=== PATIENT | male | born 1970 | race Caucasian/White ===

== ENCOUNTER 2017-08-15 04:22 | Inpatient (IN) ==
[2017-08-15] MEDS ORDERED: HYDROmorphone 2 MG/1 ML VIAL IV STA (04:28)
[2017-08-15] MEDS ORDERED: ONDANSETRON 4 MG/2 ML VIAL IV STA (04:28)
[2017-08-15] MEDS ORDERED: HYDROmorphone 2 MG/1 ML VIAL ONE ×2 (04:37→07:34)
[2017-08-15] MEDS ORDERED: ONDANSETRON 4 MG/2 ML VIAL ONE ×2 (04:37→07:33)
[2017-08-15 04:50] LABS: Basophils # 0.1 10*3/uL (0.0-0.2); Basophils % 0.4 % (0.0-0.8); Eosinophils % 0.2 % (0.00-10.9); Hemoglobin 14.4 GM/DL (14.0-18.0); Immature Granulocytes % 0.7 %; Immature Granulocytes Absolute 0.12 #; Lymphocytes # 2.1 10*3/uL (1.4-4.0); Lymphocytes % 12.4 % (21.2-54.2); Mean Corpuscular HGB Conc 35.1 GM/DL (32-36); Mean Corpuscular Hemoglobin 30 PG (27-34); Mean Corpuscular Volume 86.5 FL (87-102); Mean Platelet Volume 9.6 FL (9.6-12.0); Monocytes # 1.1 10*3/uL (0.11-0.8); Monocytes % 6.6 % (1.7-12.7); Neutrophils # 13.6 10*3/uL (1.4-7.4); Neutrophils % 79.7 % (38.7-73.9); Platelet Count 237 T/CUMM (130-400); Red Blood Count 4.74 MC/CUMM (3.8-5.5); Red Cell Distribution Width 12.7 % (9.3-17.3)
[2017-08-15] MEDS ORDERED: cefTRIAXone 2,000 MG in SODIUM CHLORIDE 0.9% 100 ML IV ONE (05:01)
[2017-08-15] MEDS ORDERED: SODIUM CHLORIDE 0.9% 1,000 ML IV STA (05:07)
[2017-08-15 05:19] LABS: Alanine Aminotransferase 57 U/L (16-61); Albumin 3.6 G/DL (3.4-5.0); Alkaline Phosphatase 76 U/L (45-117); Aspartate Amino Transferase 48 U/L (0-37); Blood Urea Nitrogen 10 MG/DL (7-18); CKMB % 1.4 %; Calcium 8.6 MG/DL (8.5-10.1); Glucose 187 MG/DL (74-106); Osmolality,Calculated 263.8 MOS/KG (273-304); Potassium 5.4 MMOL/L (3.5-5.1); Sodium 130 MMOL/L (136-145); Total Protein 7.2 G/DL (6.4-8.3); Troponin I Only < 0.015 NG/ML (0.00-0.045)
[2017-08-15] MEDS ORDERED: cefTRIAXone 1,000 MG VIAL ONE (05:24)
[2017-08-15 05:52] LABS: PT Patient Result 10.7 SECS
[2017-08-15] MEDS ORDERED: ALUMINUM/MAGNES/SIMETH MAX STR 30 ML UDCUP PO PRN (06:13)
[2017-08-15] MEDS ORDERED: ACETAMINOPHEN 325 MG TABLET PO PRN (06:13)
[2017-08-15] MEDS ORDERED: DEXTROSE 50% 25 GM/50 ML VIAL IV PRN (06:24)
[2017-08-15] MEDS ORDERED: GLUCAGON 1 MG VIAL IM PRN (06:24)
[2017-08-15] MEDS ORDERED: SODIUM CHLORIDE 0.9% 1,000 ML IV SCH (06:30)
[2017-08-15 06:32] LABS: Apearance,Urine Slightly Hazy (Clear); Bacteria,Urine Occasional /HPF (Few); Bilirubin,Urine Negative (Negative); Blood, Urine Small mg/dL (Negative); Glucose,Urine (UA) Negative (Negative); Hyaline Casts,Urine 9 /LPF (0-3); Ketones,Urine Negative (Negative); Mucus,Urine Occasional /LPF (Occasional); Nitrite,Urine Negative (Negative); Protein,Urine 30 MG/DL; RBC,Urine <1 /HPF (0-4); Urine Color Yellow (Yellow); Urine Specific Gravity 1.035 (1.001-1.035); Urine Urobilinogen < 2.0 EU/DL (0.2-1.0); WBC,Urine 2 /HPF (0-6)
[2017-08-15 06:41] LABS: Barbiturates Screen,Urine Negative (Negative); Benzodiazepines Screen,Urine Positive (Negative); Cannabinoid Screen,Urine Negative (Negative); Opiate Screen,Urine Positive (Negative); Phencyclidine Screen,Urine Negative (Negative)
[2017-08-15 06:49] LABS: ABG Base Excess -6.6 MMOL/L (-2.5-2.5); ABG HCO3 18.9 MMOL/L (20-26); ABG Oxygen Saturation 89.2 % (95-100); ABG PCO2 61.3 MM HG (35-48); ABG PO2 71.5 MM HG (80-95); ABG TCO2 20.9 MMOL/L (23-27); Allen Test Positive
[2017-08-15 06:51] LABS: ABG PH 7.187 (7.35-7.45)
[2017-08-15] MEDS ORDERED: ATROPINE 0.4 MG/1 ML VIAL ONE (07:17)
[2017-08-15] MEDS: ONDANSETRON 4 MG/2 ML VIAL IV PRN ×3 (07:36→15:23)
[2017-08-15] MEDS: HYDROmorphone 2 MG/1 ML VIAL IV PRN ×3 (07:38→15:24)
[2017-08-15] MEDS: KETOROLAC 15 MG/1 ML VIAL IV SCH ×3 (08:33→21:05)
[2017-08-15] MEDS: INSULIN REGULAR 100 UNIT/ML SUBCUT SCH ×4 (08:35→21:10)
[2017-08-15 09:58] LABS: Allen Test Positive
[2017-08-15 10:04] LABS: ABG Base Excess -7.7 MMOL/L (-2.5-2.5); ABG HCO3 18.1 MMOL/L (20-26); ABG Oxygen Saturation 88.9 % (95-100); ABG PCO2 57.7 MM HG (35-48); ABG PO2 69.2 MM HG (80-95); ABG TCO2 19.6 MMOL/L (23-27)
[2017-08-15] MEDS ORDERED: ALBUTEROL/IPRATROPIUM 3 ML NEB RESP TX PRN (10:07)
[2017-08-15 10:13] LABS: ABG PH 7.187 (7.35-7.45)
[2017-08-15 10:32] LABS: Free T4 (Free Thyroxine) 0.87 NG/DL (0.76-1.46); Thyroid Stimulating Hormone 1.22 uIU/ml (0.358-3.74)
[2017-08-15] MEDS: DOCUSATE SODIUM 100 MG CAPSULE PO SCH ×2 (10:45→21:09)
[2017-08-15] MEDS: PANTOPRAZOLE 40 MG TABLET PO SCH (10:45)
[2017-08-15] MEDS: SODIUM BICARB IV SCH ×2 (11:11→21:04)
[2017-08-15] MEDS: NACL 0.45% IV SCH ×2 (11:11→21:04)
[2017-08-15] MEDS: DEXTROSE 5% IV SCH ×2 (11:11→21:04)
[2017-08-15 11:18] LABS: Basophils % 0.2 % (0.0-0.8); Hematocrit 39.9 VOL% (42.0-52.0); Hemoglobin 13.9 GM/DL (14.0-18.0); Immature Granulocytes % 0.8 %; Immature Granulocytes Absolute 0.12 #; Lymphocytes # 0.8 10*3/uL (1.4-4.0); Lymphocytes % 5.5 % (21.2-54.2); Mean Corpuscular HGB Conc 34.8 GM/DL (32-36); Mean Corpuscular Hemoglobin 30 PG (27-34); Mean Corpuscular Volume 87.1 FL (87-102); Monocytes # 1.4 10*3/uL (0.11-0.8); Monocytes % 9.7 % (1.7-12.7); Neutrophils # 12.4 10*3/uL (1.4-7.4); Neutrophils % 83.8 % (38.7-73.9); Platelet Count 195 T/CUMM (130-400); Red Blood Count 4.58 MC/CUMM (3.8-5.5); Red Cell Distribution Width 12.9 % (9.3-17.3); White Blood Count 14.8 T/CUMM (4-12)
[2017-08-15 11:23] LABS: Apearance,Urine CLEAR (Clear); Bilirubin,Urine Negative (Negative); Blood, Urine Small mg/dL (Negative); Glucose,Urine (UA) Negative (Negative); Ketones,Urine Negative (Negative); Mucus,Urine Occasional /LPF (Occasional); Nitrite,Urine Negative (Negative); Protein,Urine Negative; Urine Color Straw (Yellow); Urine Specific Gravity 1.006 (1.001-1.035); Urine Urobilinogen < 2.0 EU/DL (0.2-1.0); WBC,Urine <1 /HPF (0-6)
[2017-08-15] MEDS ORDERED: HydrOXYzine PAMOATE 50 MG CAPSULE PO PRN (11:43)
[2017-08-15] MEDS ORDERED: DEXAMETHASONE 4 MG/1 ML VIAL MISC INJ ONE (12:00)
[2017-08-15] MEDS ORDERED: BUPIVACAINE 0.5% 10 ML VIAL NERVEBLOCK ONE (12:00)
[2017-08-15] MEDS ORDERED: DEXAMETHASONE 10 MG/1 ML VIAL MISC INJ ONE (12:00)
[2017-08-15] MEDS: ALBUTEROL/IPRATROPIUM 3 ML NEB RESP TX SCH ×2 (12:04→20:25)
[2017-08-15 12:08] LABS: Allen Test Positive
[2017-08-15 12:29] LABS: ABG Base Excess -3.3 MMOL/L (-2.5-2.5); ABG HCO3 21.5 MMOL/L (20-26); ABG Oxygen Saturation 90.5 % (95-100); ABG PH 7.233 (7.35-7.45); ABG PO2 69.1 MM HG (80-95)
[2017-08-15] MEDS: VENLAFAXINE XR 75 MG CAPSULE PO SCH (13:56)
[2017-08-15] MEDS: METOPROLOL TARTRATE 50 MG TABLET PO SCH (21:09)
[2017-08-16] MEDS: HYDROmorphone 2 MG/1 ML VIAL IV PRN ×3 (00:23→23:15)
[2017-08-16] MEDS: ONDANSETRON 4 MG/2 ML VIAL IV PRN ×2 (00:26→18:22)
[2017-08-16] MEDS: ALBUTEROL/IPRATROPIUM 3 ML NEB RESP TX SCH ×4 (00:46→19:39)
[2017-08-16] MEDS: KETOROLAC 15 MG/1 ML VIAL IV SCH ×4 (02:47→23:15)
[2017-08-16 03:44] LABS: ABG Base Excess 2.9 MMOL/L (-2.5-2.5); ABG HCO3 26.8 MMOL/L (20-26); ABG Oxygen Saturation 89.6 % (95-100); ABG PCO2 53.4 MM HG (35-48); ABG PO2 59.6 MM HG (80-95); ABG TCO2 26.8 MMOL/L (23-27); Allen Test Positive
[2017-08-16 05:00] LABS: Basophils % 0.1 % (0.0-0.8); Hematocrit 30.4 VOL% (42.0-52.0); Hemoglobin 10.5 GM/DL (14.0-18.0); Immature Granulocytes % 0.8 %; Lymphocytes # 0.8 10*3/uL (1.4-4.0); Lymphocytes % 6.6 % (21.2-54.2); Mean Corpuscular HGB Conc 34.5 GM/DL (32-36); Mean Corpuscular Hemoglobin 30 PG (27-34); Mean Corpuscular Volume 87.1 FL (87-102); Mean Platelet Volume 10.2 FL (9.6-12.0); Monocytes # 1.2 10*3/uL (0.11-0.8); Monocytes % 9.7 % (1.7-12.7); Neutrophils # 10.5 10*3/uL (1.4-7.4); Neutrophils % 82.8 % (38.7-73.9); Platelet Count 172 T/CUMM (130-400); Red Blood Count 3.49 MC/CUMM (3.8-5.5); Red Cell Distribution Width 12.6 % (9.3-17.3); White Blood Count 12.7 T/CUMM (4-12)
[2017-08-16 05:27] LABS: Calcium 7.7 MG/DL (8.5-10.1); Osmolality,Calculated 266.8 MOS/KG (273-304); Potassium 4.7 MMOL/L (3.5-5.1)
[2017-08-16 05:33] LABS: Albumin 3.1 G/DL (3.4-5.0); Bilirubin,Total 0.6 MG/DL (0.2-1.0); Osmolality,Calculated 270.5 MOS/KG (273-304); Potassium 4.7 MMOL/L (3.5-5.1); Risk Ratio 2.92; Total Protein 6.1 G/DL (6.4-8.3); VLDL CHOLESTEROL 39.2 MG/DL
[2017-08-16] MEDS: NACL 0.45% IV SCH (08:39)
[2017-08-16] MEDS: SODIUM BICARB IV SCH (08:39)
[2017-08-16] MEDS: DEXTROSE 5% IV SCH (08:39)
[2017-08-16] MEDS: INSULIN REGULAR 100 UNIT/ML SUBCUT SCH ×4 (08:41→23:15)
[2017-08-16] MEDS: ROSUVASTATIN 10 MG TABLET PO SCH (08:43)
[2017-08-16] MEDS: VENLAFAXINE XR 75 MG CAPSULE PO SCH (08:43)
[2017-08-16] MEDS: DOCUSATE SODIUM 100 MG CAPSULE PO SCH ×2 (08:43→23:15)
[2017-08-16] MEDS: PANTOPRAZOLE 40 MG TABLET PO SCH (08:43)
[2017-08-16 09:15] LABS: Hematocrit 28.2 VOL% (42.0-52.0); Hemoglobin 9.8 GM/DL (14.0-18.0)
[2017-08-16] MEDS ORDERED: SODIUM CHLORIDE 0.9% 250 ML IV PRN (09:49)
[2017-08-16] MEDS: LISINOPRIL 20 MG TABLET PO SCH (10:27)
[2017-08-16] MEDS: METOPROLOL TARTRATE 50 MG TABLET PO SCH (10:27)
[2017-08-16] MEDS: LACTATED RINGERS 1,000 ML IV SCH (11:06)
[2017-08-16 17:34] LABS: Hematocrit 30.3 VOL% (42.0-52.0); Hemoglobin 10.6 GM/DL (14.0-18.0)
[2017-08-17] MEDS: METOPROLOL TARTRATE 50 MG TABLET PO SCH ×3 (00:05→22:24)
[2017-08-17] MEDS: ALBUTEROL/IPRATROPIUM 3 ML NEB RESP TX SCH ×4 (01:00→19:15)
[2017-08-17] MEDS: LACTATED RINGERS 1,000 ML IV SCH (02:06)
[2017-08-17 03:43] LABS: ABG Base Excess 6.3 MMOL/L (-2.5-2.5); ABG HCO3 29.9 MMOL/L (20-26); ABG Oxygen Saturation 85.9 % (95-100); ABG PCO2 56.8 MM HG (35-48); ABG PH 7.372 (7.35-7.45); ABG PO2 53.3 MM HG (80-95); ABG TCO2 30.2 MMOL/L (23-27); Allen Test Positive
[2017-08-17] MEDS: KETOROLAC 15 MG/1 ML VIAL IV SCH ×4 (03:54→21:57)
[2017-08-17] MEDS: HYDROmorphone 2 MG/1 ML VIAL IV PRN (03:55)
[2017-08-17 06:24] LABS: Calcium 8.1 MG/DL (8.5-10.1); Magnesium 2.3 MG/DL (1.8-2.4); Osmolality,Calculated 275.8 MOS/KG (273-304); Potassium 4.3 MMOL/L (3.5-5.1)
[2017-08-17 07:34] LABS: Basophils % 0.2 % (0.0-0.8); Eosinophils % 0.1 % (0.00-10.9); Hematocrit 28.9 VOL% (42.0-52.0); Hemoglobin 9.9 GM/DL (14.0-18.0); Immature Granulocytes % 0.9 %; Lymphocytes # 1.5 10*3/uL (1.4-4.0); Lymphocytes % 12.8 % (21.2-54.2); Mean Corpuscular HGB Conc 34.3 GM/DL (32-36); Mean Corpuscular Hemoglobin 30 PG (27-34); Mean Corpuscular Volume 87.8 FL (87-102); Mean Platelet Volume 9.7 FL (9.6-12.0); Monocytes # 1.2 10*3/uL (0.11-0.8); Monocytes % 10.8 % (1.7-12.7); NRBC # 0.02 10*3/uL; Neutrophils # 8.6 10*3/uL (1.4-7.4); Neutrophils % 75.2 % (38.7-73.9); Platelet Count 134 T/CUMM (130-400); Red Blood Count 3.29 MC/CUMM (3.8-5.5); Red Cell Distribution Width 14.1 % (9.3-17.3); White Blood Count 11.4 T/CUMM (4-12)
[2017-08-17] MEDS: VENLAFAXINE XR 75 MG CAPSULE PO SCH (08:52)
[2017-08-17] MEDS: DOCUSATE SODIUM 100 MG CAPSULE PO SCH ×2 (08:52→21:57)
[2017-08-17] MEDS: LISINOPRIL 20 MG TABLET PO SCH (08:52)
[2017-08-17] MEDS: INSULIN REGULAR 100 UNIT/ML SUBCUT SCH ×4 (08:52→21:58)
[2017-08-17] MEDS ORDERED: SODIUM CHLORIDE 0.9% 250 ML IV PRN (08:53)
[2017-08-17] MEDS: PANTOPRAZOLE 40 MG TABLET PO SCH (08:53)
[2017-08-17] MEDS: ROSUVASTATIN 10 MG TABLET PO SCH (08:53)
[2017-08-17 11:00] LABS: ABG Base Excess 8.1 MMOL/L (-2.5-2.5); ABG HCO3 31.9 MMOL/L (20-26); ABG Oxygen Saturation 95.2 % (95-100); ABG PH 7.421 (7.35-7.45); ABG PO2 73.9 MM HG (80-95); ABG TCO2 31.3 MMOL/L (23-27); Allen Test Positive; Pt O2 Delivery Device Venturi Mask
[2017-08-17] MEDS ORDERED: FUROSEMIDE 40 MG/4 ML VIAL IV ONE (11:04)
[2017-08-17] MEDS: cloNIDine 0.1 MG TABLET PO SCH ×2 (12:04→22:24)
[2017-08-17] MEDS ORDERED: SODIUM CHLORIDE 0.9% 500 ML IV ONE (14:04)
[2017-08-17] MEDS: SODIUM CHLORIDE 0.9% 1,000 ML IV SCH (15:04)
[2017-08-17 17:53] LABS: Hemoglobin 9.7 GM/DL (14.0-18.0)
[2017-08-17] MEDS: LORazepam 2 MG/1 ML VIAL IV PRN ×2 (19:08→21:58)
[2017-08-17 19:49] LABS: ABG Base Excess 8.3 MMOL/L (-2.5-2.5); ABG HCO3 33.1 MMOL/L (20-26); ABG Oxygen Saturation 87.9 % (95-100); ABG PH 7.465 (7.35-7.45); ABG PO2 47.2 MM HG (80-95); ABG TCO2 34.5 MMOL/L (23-27); Allen Test Positive; Pt O2 Delivery Device Venturi Mask
[2017-08-18] MEDS: ALBUTEROL/IPRATROPIUM 3 ML NEB RESP TX SCH ×4 (00:26→19:30)
[2017-08-18] MEDS ORDERED: HALOPERIDOL 5 MG/ML AMP IV PRN (00:52)
[2017-08-18] MEDS: HYDROmorphone 2 MG/1 ML VIAL IV PRN (01:19)
[2017-08-18] MEDS ORDERED: THIAMINE 200 MG/2 ML VIAL IV ONE (01:34)
[2017-08-18] MEDS: ONDANSETRON 4 MG/2 ML VIAL IV PRN (01:56)
[2017-08-18] MEDS: LORazepam 2 MG/1 ML VIAL IV PRN ×2 (02:38→04:42)
[2017-08-18] MEDS: KETOROLAC 15 MG/1 ML VIAL IV SCH ×4 (03:05→20:46)
[2017-08-18 03:21] LABS: ABG Base Excess 4.9 MMOL/L (-2.5-2.5); ABG HCO3 28.7 MMOL/L (20-26); ABG Oxygen Saturation 88.7 % (95-100); ABG PCO2 58.2 MM HG (35-48); ABG PH 7.349 (7.35-7.45); ABG PO2 60.9 MM HG (80-95); ABG TCO2 29.2 MMOL/L (23-27); Allen Test Positive
[2017-08-18] MEDS: SODIUM CHLORIDE 0.9% 1,000 ML IV SCH ×3 (04:06→20:19)
[2017-08-18 05:11] LABS: Red Blood Count 3.37 MC/CUMM (3.8-5.5); White Blood Count 10.3 T/CUMM (4-12)
[2017-08-18 05:12] LABS: Basophils % 0.2 % (0.0-0.8); Eosinophils % 0.3 % (0.00-10.9); Hematocrit 30.1 VOL% (42.0-52.0); Hemoglobin 10.1 GM/DL (14.0-18.0); Immature Granulocytes % 0.7 %; Immature Granulocytes Absolute 0.07 #; Lymphocytes # 1.5 10*3/uL (1.4-4.0); Lymphocytes % 14.4 % (21.2-54.2); Mean Corpuscular HGB Conc 33.6 GM/DL (32-36); Mean Corpuscular Hemoglobin 30 PG (27-34); Mean Corpuscular Volume 89.3 FL (87-102); Mean Platelet Volume 10.1 FL (9.6-12.0); Monocytes # 1.2 10*3/uL (0.11-0.8); Monocytes % 12.1 % (1.7-12.7); NRBC # 0.02 10*3/uL; Neutrophils # 7.4 10*3/uL (1.4-7.4); Neutrophils % 72.3 % (38.7-73.9); Platelet Count 147 T/CUMM (130-400); Red Cell Distribution Width 14.1 % (9.3-17.3)
[2017-08-18 05:43] LABS: Calcium 8.1 MG/DL (8.5-10.1); Magnesium 2.4 MG/DL (1.8-2.4); Osmolality,Calculated 279.7 MOS/KG (273-304); Potassium 3.7 MMOL/L (3.5-5.1)
[2017-08-18 05:50] LABS: Troponin I Only < 0.015 NG/ML (0.00-0.045)
[2017-08-18] MEDS: INSULIN REGULAR 100 UNIT/ML SUBCUT SCH ×4 (09:30→20:22)
[2017-08-18] MEDS: THIAMINE 200 MG/2 ML VIAL IV SCH (09:52)
[2017-08-18] MEDS: LISINOPRIL 20 MG TABLET PO SCH (09:52)
[2017-08-18] MEDS: cloNIDine 0.1 MG TABLET PO SCH ×2 (09:53→20:46)
[2017-08-18] MEDS: METOPROLOL TARTRATE 50 MG TABLET PO SCH ×2 (09:53→20:46)
[2017-08-18] MEDS: PANTOPRAZOLE 40 MG TABLET PO SCH (09:53)
[2017-08-18] MEDS: DOCUSATE SODIUM 100 MG CAPSULE PO SCH ×2 (09:53→20:46)
[2017-08-18] MEDS: ROSUVASTATIN 10 MG TABLET PO SCH (09:53)
[2017-08-18] MEDS: VENLAFAXINE XR 75 MG CAPSULE PO SCH (11:11)
[2017-08-18] MEDS: DEXMEDETOMIDINE 200 MCG in SODIUM CHLORIDE 0.9% 48 ML IV SCH (20:19)
[2017-08-19] MEDS: ALBUTEROL/IPRATROPIUM 3 ML NEB RESP TX SCH ×4 (00:38→20:13)
[2017-08-19] MEDS: HYDROmorphone 2 MG/1 ML VIAL IV PRN (01:37)
[2017-08-19] MEDS: LORazepam 2 MG/1 ML VIAL IV PRN (02:43)
[2017-08-19] MEDS: KETOROLAC 15 MG/1 ML VIAL IV SCH ×4 (02:45→20:43)
[2017-08-19 03:44] LABS: Allen Test Positive; Pt O2 Delivery Device Venturi Mask
[2017-08-19 04:02] LABS: ABG Base Excess 0.3 MMOL/L (-2.5-2.5); ABG HCO3 24.6 MMOL/L (20-26); ABG Oxygen Saturation 90.2 % (95-100); ABG PH 7.235 (7.35-7.45); ABG PO2 72.4 MM HG (80-95); ABG TCO2 27.4 MMOL/L (23-27)
[2017-08-19 05:31] LABS: ABG Base Excess 1.1 MMOL/L (-2.5-2.5); ABG HCO3 25.1 MMOL/L (20-26); ABG Oxygen Saturation 80.2 % (95-100); ABG PCO2 64.8 MM HG (35-48); ABG PH 7.268 (7.35-7.45); ABG PO2 52.7 MM HG (80-95); ABG TCO2 27.3 MMOL/L (23-27); Allen Test Positive
[2017-08-19] MEDS: SODIUM CHLORIDE 0.9% 1,000 ML IV SCH ×2 (06:56→20:42)
[2017-08-19 07:38] LABS: ABG Base Excess 2.1 MMOL/L (-2.5-2.5); ABG HCO3 26.2 MMOL/L (20-26); ABG Oxygen Saturation 88.4 % (95-100); ABG PCO2 58.9 MM HG (35-48); ABG PH 7.309 (7.35-7.45); ABG PO2 61.2 MM HG (80-95); ABG TCO2 27.2 MMOL/L (23-27); Allen Test Positive; Pt O2 Delivery Device Venturi Mask
[2017-08-19] MEDS ORDERED: DIAZEPAM 5 MG TABLET PO PRN (09:14)
[2017-08-19] MEDS: INSULIN REGULAR 100 UNIT/ML SUBCUT SCH ×4 (09:51→20:26)
[2017-08-19] MEDS: THIAMINE 200 MG/2 ML VIAL IV SCH (09:51)
[2017-08-19] MEDS: cloNIDine 0.1 MG TABLET PO SCH ×2 (10:44→20:44)
[2017-08-19] MEDS: PANTOPRAZOLE 40 MG TABLET PO SCH (10:48)
[2017-08-19] MEDS: DOCUSATE SODIUM 100 MG CAPSULE PO SCH ×2 (10:48→20:43)
[2017-08-19] MEDS: METOPROLOL TARTRATE 50 MG TABLET PO SCH ×2 (10:48→20:44)
[2017-08-19] MEDS: LISINOPRIL 20 MG TABLET PO SCH (10:48)
[2017-08-19] MEDS: VENLAFAXINE XR 75 MG CAPSULE PO SCH (10:53)
[2017-08-19] MEDS: ROSUVASTATIN 10 MG TABLET PO SCH (10:54)
[2017-08-19 11:36] LABS: Basophils % 0.2 % (0.0-0.8); Eosinophils # 0.1 10*3/uL (0.0-0.87); Eosinophils % 0.6 % (0.00-10.9); Hematocrit 30.8 VOL% (42.0-52.0); Hemoglobin 10.2 GM/DL (14.0-18.0); Immature Granulocytes % 0.8 %; Immature Granulocytes Absolute 0.08 #; Lymphocytes # 1.4 10*3/uL (1.4-4.0); Lymphocytes % 13.3 % (21.2-54.2); Mean Corpuscular HGB Conc 33.1 GM/DL (32-36); Mean Corpuscular Hemoglobin 30 PG (27-34); Mean Corpuscular Volume 91.1 FL (87-102); Mean Platelet Volume 9.4 FL (9.6-12.0); Monocytes # 1.4 10*3/uL (0.11-0.8); Monocytes % 13.3 % (1.7-12.7); NRBC # 0.02 10*3/uL; Neutrophils # 7.3 10*3/uL (1.4-7.4); Neutrophils % 71.8 % (38.7-73.9); Platelet Count 152 T/CUMM (130-400); Red Blood Count 3.38 MC/CUMM (3.8-5.5); Red Cell Distribution Width 14.2 % (9.3-17.3); White Blood Count 10.1 T/CUMM (4-12)
[2017-08-19] MEDS: DEXMEDETOMIDINE 200 MCG in SODIUM CHLORIDE 0.9% 48 ML IV SCH (13:07)
[2017-08-19] MEDS: QUEtiapine 100 MG TABLET PO SCH (20:43)
[2017-08-20] MEDS: ALBUTEROL/IPRATROPIUM 3 ML NEB RESP TX SCH ×4 (01:26→19:34)
[2017-08-20] MEDS: KETOROLAC 15 MG/1 ML VIAL IV SCH (02:32)
[2017-08-20] MEDS: LORazepam 2 MG/1 ML VIAL IV PRN ×4 (02:33→20:01)
[2017-08-20 04:45] LABS: Basophils % 0.4 % (0.0-0.8); Eosinophils # 0.2 10*3/uL (0.0-0.87); Eosinophils % 1.9 % (0.00-10.9); Hematocrit 29.5 VOL% (42.0-52.0); Hemoglobin 9.9 GM/DL (14.0-18.0); Immature Granulocytes % 0.8 %; Immature Granulocytes Absolute 0.07 #; Lymphocytes # 1.3 10*3/uL (1.4-4.0); Lymphocytes % 16.2 % (21.2-54.2); Mean Corpuscular HGB Conc 33.6 GM/DL (32-36); Mean Corpuscular Hemoglobin 30 PG (27-34); Mean Corpuscular Volume 90.5 FL (87-102); Mean Platelet Volume 9.5 FL (9.6-12.0); Monocytes % 12.2 % (1.7-12.7); Neutrophils # 5.7 10*3/uL (1.4-7.4); Neutrophils % 68.5 % (38.7-73.9); Platelet Count 152 T/CUMM (130-400); Red Blood Count 3.26 MC/CUMM (3.8-5.5); Red Cell Distribution Width 14.1 % (9.3-17.3); White Blood Count 8.3 T/CUMM (4-12)
[2017-08-20 04:52] LABS: INR 1.1; PT Patient Result 11.1 SECS; Partial Thromboplastin Time 30.2 SECS (0-40)
[2017-08-20 05:16] LABS: Albumin 2.6 G/DL (3.4-5.0); Calcium 7.8 MG/DL (8.5-10.1); Osmolality,Calculated 279.5 MOS/KG (273-304); Potassium 3.8 MMOL/L (3.5-5.1); Total Protein 5.7 G/DL (6.4-8.3)
[2017-08-20 05:19] LABS: Calcium 8.1 MG/DL (8.5-10.1); Magnesium 2.8 MG/DL (1.8-2.4); Potassium 3.8 MMOL/L (3.5-5.1)
[2017-08-20] MEDS: INSULIN REGULAR 100 UNIT/ML SUBCUT SCH ×4 (08:31→21:16)
[2017-08-20] MEDS: DOCUSATE SODIUM 100 MG CAPSULE PO SCH ×2 (09:09→20:03)
[2017-08-20] MEDS: cloNIDine 0.1 MG TABLET PO SCH ×2 (09:09→20:02)
[2017-08-20] MEDS: METOPROLOL TARTRATE 50 MG TABLET PO SCH ×3 (09:10→20:03)
[2017-08-20] MEDS: VENLAFAXINE XR 75 MG CAPSULE PO SCH (09:10)
[2017-08-20] MEDS: ROSUVASTATIN 10 MG TABLET PO SCH (09:10)
[2017-08-20] MEDS: chlordiazePOXIDE 10 MG CAPSULE PO PRN ×3 (09:11→17:51)
[2017-08-20] MEDS: PANTOPRAZOLE 40 MG TABLET PO SCH (09:11)
[2017-08-20] MEDS: LISINOPRIL 20 MG TABLET PO SCH (09:11)
[2017-08-20] MEDS: THIAMINE 200 MG/2 ML VIAL IV SCH (09:48)
[2017-08-20] MEDS: DEXMEDETOMIDINE 200 MCG in SODIUM CHLORIDE 0.9% 48 ML IV SCH (12:42)
[2017-08-20] MEDS: SODIUM CHLORIDE 0.9% 1,000 ML IV SCH (16:51)
[2017-08-20] MEDS: QUEtiapine 100 MG TABLET PO SCH (20:04)
[2017-08-20 21:25] LABS: ABG Base Excess -0.4 MMOL/L (-2.5-2.5); ABG Oxygen Saturation 88.5 % (95-100); ABG PH 7.216 (7.35-7.45); ABG PO2 68.8 MM HG (80-95); ABG TCO2 27.2 MMOL/L (23-27)
[2017-08-20 21:33] LABS: ABG PCO2 72.5 MM HG (35-48)
[2017-08-20 23:23] LABS: ABG Base Excess 1.2 MMOL/L (-2.5-2.5); ABG HCO3 25.3 MMOL/L (20-26); ABG Oxygen Saturation 89.3 % (95-100); ABG PCO2 55.9 MM HG (35-48); ABG PH 7.314 (7.35-7.45); ABG PO2 62.2 MM HG (80-95); ABG TCO2 25.9 MMOL/L (23-27)
[2017-08-21] MEDS: ALBUTEROL/IPRATROPIUM 3 ML NEB RESP TX SCH ×4 (00:26→20:12)
[2017-08-21 05:53] LABS: Basophils % 0.2 % (0.0-0.8); Eosinophils % 0.4 % (0.00-10.9); Hematocrit 30.7 VOL% (42.0-52.0); Immature Granulocytes % 0.9 %; Immature Granulocytes Absolute 0.09 #; Lymphocytes # 1.2 10*3/uL (1.4-4.0); Lymphocytes % 12.2 % (21.2-54.2); Mean Corpuscular HGB Conc 32.6 GM/DL (32-36); Mean Corpuscular Hemoglobin 30 PG (27-34); Mean Corpuscular Volume 90.6 FL (87-102); Mean Platelet Volume 9.8 FL (9.6-12.0); Monocytes # 1.1 10*3/uL (0.11-0.8); Monocytes % 11.9 % (1.7-12.7); Neutrophils # 7.1 10*3/uL (1.4-7.4); Neutrophils % 74.4 % (38.7-73.9); Platelet Count 180 T/CUMM (130-400); Red Blood Count 3.39 MC/CUMM (3.8-5.5); Red Cell Distribution Width 13.9 % (9.3-17.3); White Blood Count 9.6 T/CUMM (4-12)
[2017-08-21 06:31] LABS: Albumin 2.6 G/DL (3.4-5.0); Bilirubin,Total 1.4 MG/DL (0.2-1.0); Calcium 7.9 MG/DL (8.5-10.1); Osmolality,Calculated 281.4 MOS/KG (273-304); Potassium 4.5 MMOL/L (3.5-5.1)
[2017-08-21] MEDS: SODIUM CHLORIDE 0.9% 1,000 ML IV SCH ×3 (08:28→21:30)
[2017-08-21] MEDS: INSULIN REGULAR 100 UNIT/ML SUBCUT SCH ×4 (08:37→21:31)
[2017-08-21] MEDS: VENLAFAXINE XR 75 MG CAPSULE PO SCH (09:40)
[2017-08-21] MEDS: ROSUVASTATIN 10 MG TABLET PO SCH (09:40)
[2017-08-21] MEDS: METOPROLOL TARTRATE 50 MG TABLET PO SCH ×2 (09:40→21:29)
[2017-08-21] MEDS: DOCUSATE SODIUM 100 MG CAPSULE PO SCH ×2 (09:41→21:30)
[2017-08-21] MEDS: LISINOPRIL 20 MG TABLET PO SCH (09:41)
[2017-08-21] MEDS: ASPIRIN EC 81 MG TABLET PO SCH (09:41)
[2017-08-21] MEDS: THIAMINE 200 MG/2 ML VIAL IV SCH (09:41)
[2017-08-21] MEDS: PANTOPRAZOLE 40 MG TABLET PO SCH (09:41)
[2017-08-21 10:25] LABS: ABG Base Excess 3.6 MMOL/L (-2.5-2.5); ABG HCO3 27.5 MMOL/L (20-26); ABG Oxygen Saturation 92.1 % (95-100); ABG PCO2 50.8 MM HG (35-48); ABG PH 7.375 (7.35-7.45); ABG PO2 68.1 MM HG (80-95)
[2017-08-21] MEDS: cloNIDine 0.1 MG TABLET PO SCH (10:44)
[2017-08-21] MEDS: DEXMEDETOMIDINE 200 MCG in SODIUM CHLORIDE 0.9% 48 ML IV SCH (12:42)
[2017-08-21] MEDS: QUEtiapine 100 MG TABLET PO SCH (21:30)
[2017-08-22] MEDS: ALBUTEROL/IPRATROPIUM 3 ML NEB RESP TX SCH ×4 (01:47→19:39)
[2017-08-22 04:36] LABS: Basophils % 0.5 % (0.0-0.8); Eosinophils # 0.2 10*3/uL (0.0-0.87); Eosinophils % 2.2 % (0.00-10.9); Hemoglobin 9.7 GM/DL (14.0-18.0); Immature Granulocytes % 0.9 %; Immature Granulocytes Absolute 0.07 #; Lymphocytes # 1.8 10*3/uL (1.4-4.0); Lymphocytes % 22.3 % (21.2-54.2); Mean Corpuscular HGB Conc 33.4 GM/DL (32-36); Mean Corpuscular Hemoglobin 30 PG (27-34); Mean Corpuscular Volume 89.8 FL (87-102); Mean Platelet Volume 9.7 FL (9.6-12.0); Monocytes # 0.9 10*3/uL (0.11-0.8); NRBC # 0.02 10*3/uL; Neutrophils # 4.9 10*3/uL (1.4-7.4); Neutrophils % 62.1 % (38.7-73.9); Platelet Count 188 T/CUMM (130-400); Red Blood Count 3.23 MC/CUMM (3.8-5.5); Red Cell Distribution Width 13.8 % (9.3-17.3); White Blood Count 7.8 T/CUMM (4-12)
[2017-08-22 05:11] LABS: Albumin 2.3 G/DL (3.4-5.0); Bilirubin,Total 0.9 MG/DL (0.2-1.0); Calcium 7.8 MG/DL (8.5-10.1); Osmolality,Calculated 280.4 MOS/KG (273-304); Potassium 3.8 MMOL/L (3.5-5.1); Total Protein 5.6 G/DL (6.4-8.3)
[2017-08-22 05:23] LABS: ABG Base Excess 3.2 MMOL/L (-2.5-2.5); ABG HCO3 27.2 MMOL/L (20-26); ABG Oxygen Saturation 91.7 % (95-100); ABG PCO2 41.5 MM HG (35-48); ABG PH 7.433 (7.35-7.45); ABG PO2 62.3 MM HG (80-95); ABG TCO2 25.2 MMOL/L (23-27); Allen Test Positive; Pt O2 Delivery Device CPAP
[2017-08-22 05:45] LABS: Platelet Estimate Normal
[2017-08-22] MEDS: SODIUM CHLORIDE 0.9% 1,000 ML IV SCH ×4 (06:31→23:19)
[2017-08-22] MEDS ORDERED: TALC INTRAPLEURAL POWDER 5 GM BOTTLE INTRAPLEUR ONE (07:38)
[2017-08-22] MEDS ORDERED: BUPIVACAINE LIPOSOMAL 20 ML/266 MG VIAL ONE (08:04)
[2017-08-22] MEDS: THIAMINE 200 MG/2 ML VIAL IV SCH (08:22)
[2017-08-22] MEDS ORDERED: THROMBIN TOPICAL (RECOMBINANT) 5,000 UNIT VIAL TOP ONE (08:53)
[2017-08-22] MEDS: INSULIN REGULAR 100 UNIT/ML SUBCUT SCH ×4 (09:31→20:29)
[2017-08-22] MEDS ORDERED: CEFUROXIME 1,500 MG VIAL ONE (10:23)
[2017-08-22] MEDS: ROSUVASTATIN 10 MG TABLET PO SCH ×2 (11:43→20:32)
[2017-08-22] MEDS ORDERED: ALBUTEROL 2.5 MG/3 ML NEB RESP TX ONE ×2 (12:15→12:33)
[2017-08-22] MEDS ORDERED: PROPOFOL 200 MG/20 ML VIAL IV ONE (12:27)
[2017-08-22] MEDS ORDERED: DEXAMETHASONE 10 MG/1 ML VIAL ONE (12:28)
[2017-08-22] MEDS ORDERED: fentaNYL 100 MCG/2 ML VIAL ONE (12:28)
[2017-08-22] MEDS ORDERED: GLYCOPYRROLATE 0.4 MG/2 ML VIAL ONE (12:28)
[2017-08-22] MEDS ORDERED: ONDANSETRON 4 MG/2 ML VIAL ONE (12:28)
[2017-08-22] MEDS ORDERED: SEVOFLURANE 1 UNIT/15 MINUTE INH ONE (12:28)
[2017-08-22] MEDS ORDERED: MIDAZOLAM 2 MG/2 ML VIAL ONE (12:28)
[2017-08-22] MEDS ORDERED: ROCURONIUM 100 MG/10 ML VIAL IV ONE (12:29)
[2017-08-22] MEDS ORDERED: SUCCINYLCHOLINE 200 MG/10 ML VIAL ONE (12:29)
[2017-08-22] MEDS ORDERED: NEOSTIGMINE 10 MG/10 ML VIAL ONE (12:29)
[2017-08-22] MEDS: DEXMEDETOMIDINE 200 MCG in SODIUM CHLORIDE 0.9% 48 ML IV SCH (12:33)
[2017-08-22] MEDS ORDERED: SUFentanil 50 MCG/ML AMP ONE (12:34)
[2017-08-22] MEDS ORDERED: ePHEDrine 50 MG/ML AMP ONE (12:35)
[2017-08-22] MEDS: HYDROmorphone 2 MG/1 ML VIAL IV PRN ×2 (13:14→20:58)
[2017-08-22] MEDS: METOPROLOL TARTRATE 50 MG TABLET PO SCH ×2 (14:21→20:31)
[2017-08-22] MEDS: DOCUSATE SODIUM 100 MG CAPSULE PO SCH ×2 (14:23→20:31)
[2017-08-22] MEDS: PANTOPRAZOLE 40 MG TABLET PO SCH (14:48)
[2017-08-22] MEDS: VENLAFAXINE XR 75 MG CAPSULE PO SCH (14:48)
[2017-08-22] MEDS: ASPIRIN EC 81 MG TABLET PO SCH (14:48)
[2017-08-22] MEDS: QUEtiapine 100 MG TABLET PO SCH (20:32)
[2017-08-23] MEDS: ALBUTEROL/IPRATROPIUM 3 ML NEB RESP TX SCH ×4 (01:29→19:20)
[2017-08-23 03:41] LABS: Basophils % 0.3 % (0.0-0.8); Eosinophils % 0.1 % (0.00-10.9); Hematocrit 31.5 VOL% (42.0-52.0); Hemoglobin 10.7 GM/DL (14.0-18.0); Immature Granulocytes % 1.5 %; Immature Granulocytes Absolute 0.17 #; Lymphocytes # 1.6 10*3/uL (1.4-4.0); Lymphocytes % 13.9 % (21.2-54.2); Mean Corpuscular Hemoglobin 31 PG (27-34); Mean Platelet Volume 9.6 FL (9.6-12.0); Monocytes # 1.5 10*3/uL (0.11-0.8); Monocytes % 13.2 % (1.7-12.7); NRBC # 0.03 10*3/uL; Neutrophils # 8.3 10*3/uL (1.4-7.4); Platelet Count 218 T/CUMM (130-400); White Blood Count 11.6 T/CUMM (4-12)
[2017-08-23 03:50] LABS: Calcium 7.4 MG/DL (8.5-10.1); Magnesium 2.3 MG/DL (1.8-2.4); Osmolality,Calculated 279.5 MOS/KG (273-304); Potassium 4.2 MMOL/L (3.5-5.1)
[2017-08-23 03:57] LABS: ABG Base Excess 4.6 MMOL/L (-2.5-2.5); ABG HCO3 29.1 MMOL/L (20-26); ABG PCO2 42.8 MM HG (35-48); ABG PO2 86.8 MM HG (80-95); ABG TCO2 30.4 MMOL/L (23-27); Allen Test Positive; Pt O2 Delivery Device BIPAP
[2017-08-23 04:20] LABS: Band Neutrophils 3 % (0-10); Giant Platelets Few; Lymphocytes 14 % (20-55); Platelet Estimate Normal; Segmented Neutrophils 71 % (50-85); Total Cells Counted 100
[2017-08-23 04:21] LABS: Hypochromasia 2+; Polychromasia Few
[2017-08-23] MEDS: SODIUM CHLORIDE 0.9% 1,000 ML IV SCH ×2 (06:25→14:01)
[2017-08-23] MEDS: INSULIN REGULAR 100 UNIT/ML SUBCUT SCH ×4 (07:30→20:34)
[2017-08-23] MEDS: THIAMINE 200 MG/2 ML VIAL IV SCH (09:45)
[2017-08-23] MEDS: DOCUSATE SODIUM 100 MG CAPSULE PO SCH ×2 (09:50→20:33)
[2017-08-23] MEDS: VENLAFAXINE XR 75 MG CAPSULE PO SCH (09:50)
[2017-08-23] MEDS: PANTOPRAZOLE 40 MG TABLET PO SCH (09:50)
[2017-08-23] MEDS: ASPIRIN EC 81 MG TABLET PO SCH (09:50)
[2017-08-23] MEDS: METOPROLOL TARTRATE 50 MG TABLET PO SCH ×2 (09:51→20:33)
[2017-08-23] MEDS: DEXMEDETOMIDINE 200 MCG in SODIUM CHLORIDE 0.9% 48 ML IV SCH (13:42)
[2017-08-23] MEDS: ROSUVASTATIN 10 MG TABLET PO SCH (20:33)
[2017-08-23] MEDS: QUEtiapine 100 MG TABLET PO SCH (20:33)
[2017-08-23] MEDS: HYDROmorphone 2 MG/1 ML VIAL IV PRN (21:16)
[2017-08-24] MEDS: ALBUTEROL/IPRATROPIUM 3 ML NEB RESP TX SCH ×4 (00:37→19:25)
[2017-08-24] MEDS: SODIUM CHLORIDE 0.9% 1,000 ML IV SCH ×2 (02:12→09:56)
[2017-08-24 03:27] LABS: ABG Base Excess 3.7 MMOL/L (-2.5-2.5); ABG HCO3 27.6 MMOL/L (20-26); ABG Oxygen Saturation 94.6 % (95-100); ABG PCO2 48.2 MM HG (35-48); ABG PH 7.392 (7.35-7.45); ABG PO2 73.6 MM HG (80-95); ABG TCO2 26.7 MMOL/L (23-27); Allen Test Positive; Pt O2 Delivery Device CPAP
[2017-08-24 03:45] LABS: Basophils % 0.3 % (0.0-0.8); Eosinophils # 0.2 10*3/uL (0.0-0.87); Eosinophils % 1.5 % (0.00-10.9); Hematocrit 28.7 VOL% (42.0-52.0); Hemoglobin 9.4 GM/DL (14.0-18.0); Immature Granulocytes % 1.6 %; Immature Granulocytes Absolute 0.17 #; Lymphocytes # 1.7 10*3/uL (1.4-4.0); Lymphocytes % 16.1 % (21.2-54.2); Mean Corpuscular HGB Conc 32.8 GM/DL (32-36); Mean Corpuscular Hemoglobin 30 PG (27-34); Mean Corpuscular Volume 90.8 FL (87-102); Mean Platelet Volume 9.8 FL (9.6-12.0); Monocytes # 1.3 10*3/uL (0.11-0.8); NRBC # 0.02 10*3/uL; Neutrophils # 7.3 10*3/uL (1.4-7.4); Neutrophils % 68.5 % (38.7-73.9); Platelet Count 203 T/CUMM (130-400); Red Blood Count 3.16 MC/CUMM (3.8-5.5); White Blood Count 10.6 T/CUMM (4-12)
[2017-08-24 04:17] LABS: Calcium 7.2 MG/DL (8.5-10.1); Magnesium 2.2 MG/DL (1.8-2.4); Osmolality,Calculated 275.7 MOS/KG (273-304); Potassium 3.8 MMOL/L (3.5-5.1)
[2017-08-24] MEDS: HYDROmorphone 2 MG/1 ML VIAL IV PRN ×2 (06:33→22:14)
[2017-08-24] MEDS: INSULIN REGULAR 100 UNIT/ML SUBCUT SCH ×4 (07:28→22:06)
[2017-08-24] MEDS: METOPROLOL TARTRATE 50 MG TABLET PO SCH ×2 (09:54→22:07)
[2017-08-24] MEDS: VENLAFAXINE XR 75 MG CAPSULE PO SCH (09:56)
[2017-08-24] MEDS: PANTOPRAZOLE 40 MG TABLET PO SCH (09:56)
[2017-08-24] MEDS: ASPIRIN EC 81 MG TABLET PO SCH (09:56)
[2017-08-24] MEDS: DOCUSATE SODIUM 100 MG CAPSULE PO SCH ×2 (09:56→22:06)
[2017-08-24] MEDS: THIAMINE 200 MG/2 ML VIAL IV SCH (09:57)
[2017-08-24] MEDS: DEXMEDETOMIDINE 200 MCG in SODIUM CHLORIDE 0.9% 48 ML IV SCH (11:24)
[2017-08-24] MEDS: ROSUVASTATIN 10 MG TABLET PO SCH (22:06)
[2017-08-24] MEDS: QUEtiapine 100 MG TABLET PO SCH (22:08)
[2017-08-25] MEDS: ALBUTEROL/IPRATROPIUM 3 ML NEB RESP TX SCH ×5 (00:57→19:38)
[2017-08-25] MEDS: SODIUM CHLORIDE 0.9% 1,000 ML IV SCH ×2 (01:12→17:52)
[2017-08-25 03:10] LABS: Basophils % 0.3 % (0.0-0.8); Eosinophils # 0.1 10*3/uL (0.0-0.87); Eosinophils % 1.3 % (0.00-10.9); Hematocrit 29.8 VOL% (42.0-52.0); Hemoglobin 9.9 GM/DL (14.0-18.0); Immature Granulocytes % 1.2 %; Immature Granulocytes Absolute 0.12 #; Lymphocytes # 1.6 10*3/uL (1.4-4.0); Lymphocytes % 15.9 % (21.2-54.2); Mean Corpuscular HGB Conc 33.2 GM/DL (32-36); Mean Corpuscular Hemoglobin 30 PG (27-34); Mean Platelet Volume 9.8 FL (9.6-12.0); Monocytes % 9.4 % (1.7-12.7); Neutrophils # 7.4 10*3/uL (1.4-7.4); Neutrophils % 71.9 % (38.7-73.9); Platelet Count 241 T/CUMM (130-400); Red Blood Count 3.31 MC/CUMM (3.8-5.5); Red Cell Distribution Width 13.9 % (9.3-17.3); White Blood Count 10.2 T/CUMM (4-12)
[2017-08-25 04:13] LABS: Calcium 7.7 MG/DL (8.5-10.1); Magnesium 2.5 MG/DL (1.8-2.4); Potassium 3.9 MMOL/L (3.5-5.1)
[2017-08-25 04:13] LABS: ABG Base Excess 3.5 MMOL/L (-2.5-2.5); ABG HCO3 27.4 MMOL/L (20-26); ABG Oxygen Saturation 84.9 % (95-100); ABG PCO2 44.3 MM HG (35-48); ABG PH 7.416 (7.35-7.45); ABG PO2 51.7 MM HG (80-95); ABG TCO2 26.3 MMOL/L (23-27); Allen Test Positive; Pt O2 Delivery Device BIPAP
[2017-08-25 05:31] LABS: Giant Platelets Few; Hypochromasia 1+; Microcytosis Slight; Platelet Estimate Adequate
[2017-08-25] MEDS: INSULIN REGULAR 100 UNIT/ML SUBCUT SCH ×4 (08:14→21:00)
[2017-08-25] MEDS: METOPROLOL TARTRATE 50 MG TABLET PO SCH ×2 (09:43→20:57)
[2017-08-25] MEDS: VENLAFAXINE XR 75 MG CAPSULE PO SCH (09:43)
[2017-08-25] MEDS: ASPIRIN EC 81 MG TABLET PO SCH (09:43)
[2017-08-25] MEDS: PANTOPRAZOLE 40 MG TABLET PO SCH (09:44)
[2017-08-25] MEDS: THIAMINE 200 MG/2 ML VIAL IV SCH (09:44)
[2017-08-25] MEDS: DOCUSATE SODIUM 100 MG CAPSULE PO SCH ×2 (09:44→20:57)
[2017-08-25] MEDS: BISACODYL 5 MG TABLET PO PRN (09:44)
[2017-08-25] MEDS: HYDROmorphone 2 MG/1 ML VIAL IV PRN (12:15)
[2017-08-25] MEDS: DEXMEDETOMIDINE 200 MCG in SODIUM CHLORIDE 0.9% 48 ML IV SCH (13:27)
[2017-08-25] MEDS: QUEtiapine 100 MG TABLET PO SCH (20:56)
[2017-08-25] MEDS: ROSUVASTATIN 10 MG TABLET PO SCH (20:57)
[2017-08-26] MEDS: ALBUTEROL/IPRATROPIUM 3 ML NEB RESP TX SCH ×4 (00:54→19:40)
[2017-08-26] MEDS: HYDROmorphone 2 MG/1 ML VIAL IV PRN (02:30)
[2017-08-26 03:41] LABS: ABG Base Excess 4.3 MMOL/L (-2.5-2.5); ABG HCO3 29.7 MMOL/L (20-26); ABG PCO2 48.4 MM HG (35-48); ABG PH 7.406 (7.35-7.45); ABG PO2 57.6 MM HG (80-95); ABG TCO2 31.2 MMOL/L (23-27); Allen Test Positive
[2017-08-26 05:23] LABS: Basophils % 0.3 % (0.0-0.8); Eosinophils # 0.1 10*3/uL (0.0-0.87); Eosinophils % 1.3 % (0.00-10.9); Hematocrit 28.7 VOL% (42.0-52.0); Hemoglobin 9.3 GM/DL (14.0-18.0); Immature Granulocytes % 0.9 %; Immature Granulocytes Absolute 0.08 #; Lymphocytes # 1.5 10*3/uL (1.4-4.0); Lymphocytes % 16.2 % (21.2-54.2); Mean Corpuscular HGB Conc 32.4 GM/DL (32-36); Mean Corpuscular Hemoglobin 29 PG (27-34); Mean Corpuscular Volume 90.3 FL (87-102); Monocytes # 0.7 10*3/uL (0.11-0.8); Monocytes % 7.9 % (1.7-12.7); Neutrophils # 6.9 10*3/uL (1.4-7.4); Neutrophils % 73.4 % (38.7-73.9); Platelet Count 294 T/CUMM (130-400); Red Blood Count 3.18 MC/CUMM (3.8-5.5); Red Cell Distribution Width 14.1 % (9.3-17.3); White Blood Count 9.3 T/CUMM (4-12)
[2017-08-26 05:48] LABS: Calcium 7.9 MG/DL (8.5-10.1); Magnesium 2.5 MG/DL (1.8-2.4); Osmolality,Calculated 275.5 MOS/KG (273-304); Potassium 4.3 MMOL/L (3.5-5.1)
[2017-08-26] MEDS: INSULIN REGULAR 100 UNIT/ML SUBCUT SCH ×4 (08:03→21:01)
[2017-08-26] MEDS: SODIUM CHLORIDE 0.9% 1,000 ML IV SCH ×3 (09:18→23:31)
[2017-08-26] MEDS: METOPROLOL TARTRATE 50 MG TABLET PO SCH ×2 (09:19→21:00)
[2017-08-26] MEDS: PANTOPRAZOLE 40 MG TABLET PO SCH (09:19)
[2017-08-26] MEDS: VENLAFAXINE XR 75 MG CAPSULE PO SCH (09:19)
[2017-08-26] MEDS: ASPIRIN EC 81 MG TABLET PO SCH (09:20)
[2017-08-26] MEDS: DOCUSATE SODIUM 100 MG CAPSULE PO SCH ×2 (09:20→21:00)
[2017-08-26] MEDS: THIAMINE 200 MG/2 ML VIAL IV SCH (09:20)
[2017-08-26] MEDS: BISACODYL 5 MG TABLET PO PRN (09:20)
[2017-08-26] MEDS: DEXMEDETOMIDINE 200 MCG in SODIUM CHLORIDE 0.9% 48 ML IV SCH (11:33)
[2017-08-26] MEDS: ROSUVASTATIN 10 MG TABLET PO SCH (21:00)
[2017-08-26] MEDS: QUEtiapine 100 MG TABLET PO SCH (21:03)
[2017-08-27] MEDS: ALBUTEROL/IPRATROPIUM 3 ML NEB RESP TX SCH ×4 (00:10→20:13)
[2017-08-27 05:57] LABS: Basophils % 0.4 % (0.0-0.8); Eosinophils # 0.1 10*3/uL (0.0-0.87); Eosinophils % 1.3 % (0.00-10.9); Hematocrit 28.9 VOL% (42.0-52.0); Hemoglobin 9.5 GM/DL (14.0-18.0); Immature Granulocytes % 0.7 %; Immature Granulocytes Absolute 0.05 #; Lymphocytes # 1.7 10*3/uL (1.4-4.0); Lymphocytes % 22.6 % (21.2-54.2); Mean Corpuscular HGB Conc 32.9 GM/DL (32-36); Mean Corpuscular Hemoglobin 30 PG (27-34); Mean Corpuscular Volume 89.8 FL (87-102); Mean Platelet Volume 9.8 FL (9.6-12.0); Monocytes # 0.6 10*3/uL (0.11-0.8); Monocytes % 8.5 % (1.7-12.7); Neutrophils % 66.5 % (38.7-73.9); Platelet Count 284 T/CUMM (130-400); Red Blood Count 3.22 MC/CUMM (3.8-5.5); White Blood Count 7.5 T/CUMM (4-12)
[2017-08-27 06:24] LABS: Calcium 8.1 MG/DL (8.5-10.1); Magnesium 2.6 MG/DL (1.8-2.4); Osmolality,Calculated 275.5 MOS/KG (273-304); Potassium 3.8 MMOL/L (3.5-5.1)
[2017-08-27] MEDS: INSULIN REGULAR 100 UNIT/ML SUBCUT SCH ×4 (08:15→20:36)
[2017-08-27] MEDS: SODIUM CHLORIDE 0.9% 1,000 ML IV SCH ×2 (09:16→14:57)
[2017-08-27] MEDS: METOPROLOL TARTRATE 50 MG TABLET PO SCH ×2 (09:20→21:05)
[2017-08-27] MEDS: DOCUSATE SODIUM 100 MG CAPSULE PO SCH ×2 (09:20→21:04)
[2017-08-27] MEDS: PANTOPRAZOLE 40 MG TABLET PO SCH (09:20)
[2017-08-27] MEDS: ASPIRIN EC 81 MG TABLET PO SCH (09:20)
[2017-08-27] MEDS: THIAMINE 200 MG/2 ML VIAL IV SCH (09:20)
[2017-08-27] MEDS: VENLAFAXINE XR 75 MG CAPSULE PO SCH (09:20)
[2017-08-27] MEDS: DEXMEDETOMIDINE 200 MCG in SODIUM CHLORIDE 0.9% 48 ML IV SCH (11:22)
[2017-08-27] MEDS: traMADol 50 MG TABLET PO PRN (18:25)
[2017-08-27] MEDS: QUEtiapine 100 MG TABLET PO SCH (21:05)
[2017-08-27] MEDS: ROSUVASTATIN 10 MG TABLET PO SCH (21:05)
[2017-08-28] MEDS: SODIUM CHLORIDE 0.9% 1,000 ML IV SCH (01:09)
[2017-08-28] MEDS: ALBUTEROL/IPRATROPIUM 3 ML NEB RESP TX SCH ×5 (01:29→23:46)
[2017-08-28] MEDS: INSULIN REGULAR 100 UNIT/ML SUBCUT SCH ×4 (08:36→20:43)
[2017-08-28] MEDS: ASPIRIN EC 81 MG TABLET PO SCH (08:37)
[2017-08-28] MEDS: DOCUSATE SODIUM 100 MG CAPSULE PO SCH ×2 (08:37→21:15)
[2017-08-28] MEDS: VENLAFAXINE XR 75 MG CAPSULE PO SCH (08:37)
[2017-08-28] MEDS: METOPROLOL TARTRATE 50 MG TABLET PO SCH ×2 (08:37→21:15)
[2017-08-28] MEDS: PANTOPRAZOLE 40 MG TABLET PO SCH (08:38)
[2017-08-28 09:03] LABS: ABG Base Excess 2.2 MMOL/L (-2.5-2.5); ABG HCO3 26.1 MMOL/L (20-26); ABG Oxygen Saturation 86.7 % (95-100); ABG PCO2 35.8 MM HG (35-48); ABG PH 7.465 (7.35-7.45); ABG PO2 53.1 MM HG (80-95); ABG TCO2 23.2 MMOL/L (23-27)
[2017-08-28] MEDS: THIAMINE 200 MG/2 ML VIAL IV SCH (10:53)
[2017-08-28] MEDS: DEXMEDETOMIDINE 200 MCG in SODIUM CHLORIDE 0.9% 48 ML IV SCH (11:59)
[2017-08-28] MEDS ORDERED: THIAMINE 200 MG/2 ML VIAL IM SCH (12:00)
[2017-08-28] MEDS: QUEtiapine 100 MG TABLET PO SCH (21:15)
[2017-08-28] MEDS: THIAMINE 100 MG TABLET PO SCH (21:15)
[2017-08-28] MEDS: ROSUVASTATIN 10 MG TABLET PO SCH (21:15)
[2017-08-28] MEDS: HALOPERIDOL 1 MG TABLET PO SCH (22:03)
[2017-08-29 03:46] LABS: Basophils # 0.1 10*3/uL (0.0-0.2); Basophils % 0.7 % (0.0-0.8); Eosinophils # 0.1 10*3/uL (0.0-0.87); Eosinophils % 1.2 % (0.00-10.9); Hematocrit 35.4 VOL% (42.0-52.0); Hemoglobin 11.4 GM/DL (14.0-18.0); Immature Granulocytes % 0.8 %; Immature Granulocytes Absolute 0.07 #; Lymphocytes # 2.1 10*3/uL (1.4-4.0); Lymphocytes % 22.7 % (21.2-54.2); Mean Corpuscular HGB Conc 32.2 GM/DL (32-36); Mean Corpuscular Hemoglobin 29 PG (27-34); Mean Corpuscular Volume 88.7 FL (87-102); Mean Platelet Volume 9.9 FL (9.6-12.0); Monocytes # 0.9 10*3/uL (0.11-0.8); Neutrophils # 5.9 10*3/uL (1.4-7.4); Neutrophils % 64.6 % (38.7-73.9); Platelet Count 405 T/CUMM (130-400); Red Blood Count 3.99 MC/CUMM (3.8-5.5); Red Cell Distribution Width 14.3 % (9.3-17.3); White Blood Count 9.1 T/CUMM (4-12)
[2017-08-29 04:36] LABS: Albumin 2.6 G/DL (3.4-5.0); Bilirubin,Total 1.2 MG/DL (0.2-1.0); Osmolality,Calculated 271.8 MOS/KG (273-304); Potassium 4.5 MMOL/L (3.5-5.1); Total Protein 7.4 G/DL (6.4-8.3)
[2017-08-29] MEDS: ALBUTEROL/IPRATROPIUM 3 ML NEB RESP TX SCH ×3 (07:41→19:46)
[2017-08-29] MEDS: INSULIN REGULAR 100 UNIT/ML SUBCUT SCH ×4 (08:11→21:27)
[2017-08-29] MEDS: HALOPERIDOL 1 MG TABLET PO SCH (09:19)
[2017-08-29] MEDS: VENLAFAXINE XR 75 MG CAPSULE PO SCH ×2 (09:20→21:24)
[2017-08-29] MEDS: DOCUSATE SODIUM 100 MG CAPSULE PO SCH ×2 (09:20→21:24)
[2017-08-29] MEDS: METOPROLOL TARTRATE 50 MG TABLET PO SCH ×2 (09:20→21:24)
[2017-08-29] MEDS: THIAMINE 100 MG TABLET PO SCH ×2 (09:20→21:23)
[2017-08-29] MEDS: PANTOPRAZOLE 40 MG TABLET PO SCH (09:20)
[2017-08-29] MEDS: ASPIRIN EC 81 MG TABLET PO SCH (09:20)
[2017-08-29] MEDS: traMADol 50 MG TABLET PO PRN (09:20)
[2017-08-29] MEDS ORDERED: QUEtiapine 100 MG TABLET PO SCH (10:46)
[2017-08-29] MEDS ORDERED: CLOPIDOGREL 75 MG TABLET PO SCH (11:00)
[2017-08-29] MEDS: ROSUVASTATIN 10 MG TABLET PO SCH (21:24)
[2017-08-30] MEDS: ALBUTEROL/IPRATROPIUM 3 ML NEB RESP TX SCH (00:07)
[2017-08-30 08:09] VITALS: BP 128/92
[2017-08-30] MEDS: INSULIN REGULAR 100 UNIT/ML SUBCUT SCH (08:15)
== END 2017-08-30 08:49 | disposition home or self-care (01) | DRG 163 ==
LOC: EDBD → EDUNIT# → N.ED 04:22 → N.EDINP 06:13 → N.CC 07:42 → N.TELES 08-24 18:47
PROVIDERS: ADMIT Specialist; ATTEND Specialist